=== PATIENT | female | born 1930 | race Caucasian/White ===

== ENCOUNTER 2017-01-21 17:01 | Emergency (ER) | payer MEDICARE, OTHER ==
[~2017-01-21] VITALS: Ht 172.7 cm; Wt 99.8 kg
[~2017-01-21 17:01] MED LIST: ACET325T38 PO; AMAN100T PO; ATOR10TA PO; CALC600T12 PO; CARB1TAB6 PO; CODE118S2 PO; DOCU-143 PO; FLUT16SP22 NS; FURO-124 PO; GEMF600T PO; GUAI100L13 PO; GUAI600T43 PO; HYDR-757 PO; HYPR15DR11 OU; MENT1LOZ4 MM; METO-270 PO; MG T1TAB2 PO; OMG1KC PO; PANT40TA2 PO; POLY17PO6 PO; POTA10TA6 PO; PSYL660P17 PO; VITA400C60 PO
--- NOTE | 2017-01-21 17:23 | ED Trauma-Multisystem ---
General Stated Complaint: FALL Source of Information: Patient, Caregiver Exam Limitations: No Limitations (KRISHNA BOSWELL MD) History of Present Illness Time Seen by Provider: 17:20 Initial Comments The patient is an 86-year-old white female residential resident. She was accompanied by residential personnel. She has rather marked dementia and has no memory of events. She was apparently standing in the doorway of the residential office and fell backward striking her head on the floor. She has no complaints of pain. There was no loss of consciousness. The residential personnel were able to get her up and to ambulate. Occurred: Just Prior to Arrival Pain/Injury Location: Head Method of Injury: Fall (KRISHNA BOSWELL MD) Allergies and Home Medications Allergies Coded Allergies: Penicillins (Verified Allergy, Unknown, 01/30/16) iodine (Verified Allergy, Unknown, 01/30/16) Home Medications Acetaminophen 325 Mg Tablet, 650 MG PO Q4H PRN for PAIN/ELEVATED TEMP, (Reported ) Al Hydrox/mg Trisilicate 1 Tab.chew Tab.chew, 2 TAB.CHEW PO QID PRN for STOMACH UPSET, (Reported) Amantadine HCl 100 Mg Tablet, 100 MG PO BID, (Reported) Atorvastatin Calcium 10 Mg Tablet, 10 MG PO DAILY, (Reported) Calcium Carbonate 600 Mg Tablet, 600 MG PO BID, (Reported) Carbidopa/Levodopa 1 Each Tablet, 1 TAB PO BID, (Reported) Docusate Sodium 100 Mg Capsule, 100 MG PO BID, (Reported) Fluticasone Propionate 16 Gm [place].susp, 1 SPRAY NS 1700, (Reported) Furosemide 40 Mg Tablet, 40 MG PO DAILY, (Reported) Gemfibrozil 600 Mg Tablet, 600 MG PO BID, (Reported) Guaifenesin 100 Mg/5 Ml Liquid, 10 ML PO Q4H PRN for COUGH, (Reported) Guaifenesin 600 Mg Tab.er.12h, 600 MG PO TID PRN for COUGH/CONGESTION, (Reported ) Hydrocodone/Acetaminophen 1 Each Tablet, 1 TAB PO Q4H PRN for PAIN, (Reported) Hypromellose 15 Ml Drops, 1 DROP OU Q4H PRN for DRY EYES, (Reported) Menthol/Herbal Drugs 1 Each Lozenge, 1 ALETA MM EVERY 2 HOURS PRN for COUGH, ( Reported) MAY HAVE ONE DROP EVERY 2 HOURS, NOT TO EXCEED 6 DROPS IN 24 HOURS Metoprolol Succinate 25 Mg Tab.er.24h, 25 MG PO DAILY, #30 Ref 2 Prescribed by: ADAN UMANA on 02/02/16 [address] [place] 3 Polyunsat Fatty Acids 1,000 Mg Cap, 1,000 MG PO DAILY, (Reported) Pantoprazole Sodium 40 Mg Tablet.dr, 40 MG PO BID, (Reported) Polyethylene Glycol 3350 17 Gm Powd.pack, 17 GM PO DAILY, (Reported) Potassium Chloride 10 Meq Tablet.er, 10 MEQ PO BID, (Reported) Promethazine HCl/Codeine 118 Ml Syrup, 10 ML PO Q4H PRN for COUGH, (Reported) Psyllium Husk 660 Gm Powder, 3 TSP PO DAILY, (Reported) Psyllium Husk 660 Gm Powder, 2 TSP PO BID PRN for CONSTIPATION, (Reported) Vitamin E Acetate 400 Unit Capsule, 400 UNIT PO DAILY, (Reported) Constitutional: other (patient is very pleasant but very confused. She has no complaints of pain and does not know where she is) (KRISHNA BOSWELL MD) Past Qursouc-Hxdcyu-Ryhjsz Hx Patient Social History Recent Foreign Travel: No Contact w/Someone Who Travel: No (KRISHNA BOSWELL MD) Immunizations Up To Date Tetanus Booster (TDap): Unknown PED Vaccines UTD: No (KRISHNA BOSWELL MD) Surgeries HX Surgeries: Yes (KRISHNA BOSWELL MD) Respiratory Hx Respiratory Disorders: No (KRISHNA BOSWELL MD) Cardiovascular Hx Cardiac Disorders: Yes (admitted with complete HB 01/30/16) (KRISHNA BOSWELL MD) Neurological Hx Neurological Disorders: Yes (KRISHNA BOSWELL MD) Reproductive System Hx Reproductive Disorders: No (KRISHNA BOSWELL MD) Genitourinary Hx Genitourinary Disorders: Yes Genitourinary Disorders: UTI-Chronic (KRISHNA BOSWELL MD) Gastrointestinal Hx Gastrointestinal Disorders: Yes Gastrointestinal Disorders: Gastroesophageal Reflux, Chronic Constipation, Polyps (KRISHNA BOSWELL MD) Musculoskeletal Hx Musculoskeletal Disorders: Yes Musculoskeletal Disorders: Arthritis (KRISHNA BOSWELL MD) Endocrine Hx Endocrine Disorders: No (KRISHNA BOSWELL MD) HEENT HX ENT Disorders: No (KRISHNA BOSWELL MD) Cancer Hx Cancer: No (KRISHNA BOSWELL MD) Psychosocial Hx Psychiatric Problems: No (KRISHNA BOSWELL MD) Integumentary HX Skin/Integumentary Disorder: No (KRISHNA BOSWELL MD) Blood Transfusions Hx Blood Disorders: No (KRISHNA BOSWELL MD) Family Medical History Significant Family History: Hypertension Family Medial History: Unknown family medical history (KRISHNA BOSWELL MD) Family Medial History: Unknown family medical history (TYREEJESIKA Krsihna DAMICO) Physical Exam Vital Signs Vital Sign - Last 12Hours 01/21/17 17:22 Temp 97.8 Pulse 71 Resp 18 B/P (MAP) 187/104 Pulse Ox 96 O2 Delivery Room Air (TYREEJESIKA ) General Appearance: No Apparent Distress, WD/WN Head: Swelling, Tenderness Eyes: Bilateral Eye Normal Inspection Cardiovascular: Regular Rate, Rhythm, No Edema, No Gallop, No JVD, No Murmur, Normal Peripheral Pulses Respiratory: Chest Non Tender, Lungs Clear, Normal Breath Sounds, No Accessory Muscle Use, No Respiratory Distress Extremity: Normal Capillary Refill, Normal Inspection, Normal Range of Motion, Non Tender, No Calf Tenderness, No Pedal Edema (KRISHNA BOSWELL MD) Progress/Results/Core Measures Results/Orders Lab Results Laboratory Tests Test 01/21/17 19:10 01/21/17 19:25 Range/Units White Blood Count 7.6 4.3-11.0 10^3/uL Red Blood Count 4.45 4.35-5.85 10^6/uL Hemoglobin 13.9 11.5-16.0 G/DL Hematocrit 43 35-52 % Mean Corpuscular Volume 97 80-99 FL Mean Corpuscular Hemoglobin 31 25-34 PG Mean Corpuscular Hemoglobin Concent 32 32-36 G/DL Red Cell Distribution Width 13.9 10.0-14.5 % Platelet Count 191 130-400 10^3/uL Mean Platelet Volume 9.8 7.4-10.4 FL Neutrophils (%) (Auto) 76 H 42-75 % Lymphocytes (%) (Auto) 11 L 12-44 % Monocytes (%) (Auto) 11 0-12 % Eosinophils (%) (Auto) 1 0-10 % Basophils (%) (Auto) 0 0-10 % Neutrophils # (Auto) 5.8 1.8-7.8 X 10^3 Lymphocytes # (Auto) 0.9 L 1.0-4.0 X 10^3 Monocytes # (Auto) 0.9 0.0-1.0 X 10^3 Eosinophils # (Auto) 0.1 0.0-0.3 10^3/uL Basophils # (Auto) 0.0 0.0-0.1 10^3/uL Prothrombin Time 13.4 12.2-14.7 SEC INR Comment 1.1 0.8-1.4 Activated Partial Thromboplast Time 25 24-35 SEC Sodium Level 143 135-145 MMOL/L Potassium Level 3.2 L 3.6-5.0 MMOL/L Chloride Level 107 98-107 MMOL/L Carbon Dioxide Level 23 21-32 MMOL/L Anion Gap 13 5-14 MMOL/L Blood Urea Nitrogen 22 H 7-18 MG/DL Creatinine 1.26 0.60-1.30 MG/DL Estimat Glomerular Filtration Rate 40 BUN/Creatinine Ratio 17 Glucose Level 104 70-105 MG/DL Calcium Level 9.9 8.5-10.1 MG/DL Magnesium Level 2.1 1.8-2.4 MG/DL Total Bilirubin 0.8 0.1-1.0 MG/DL Aspartate Amino Transf (AST/SGOT) 13 5-34 U/L Alanine Aminotransferase (ALT/SGPT) 10 0-55 U/L Alkaline Phosphatase 128 40-136 U/L Total Protein 7.2 6.4-8.2 G/DL Albumin 4.3 3.2-4.5 G/DL Urine Color YELLOW Urine Clarity CLEAR Urine pH 5 5-9 Urine Specific [place] 1.015 L 1.016-1.022 Urine Protein NEGATIVE NEGATIVE Urine Glucose (UA) NEGATIVE NEGATIVE Urine Ketones NEGATIVE NEGATIVE Urine Nitrite NEGATIVE NEGATIVE Urine Bilirubin NEGATIVE NEGATIVE Urine Urobilinogen NORMAL NORMAL MG/DL Urine Leukocyte Esterase 2+ H NEGATIVE Urine RBC (Auto) NEGATIVE NEGATIVE Urine RBC NONE /HPF Urine WBC 10-25 H /HPF Urine Squamous Epithelial Cells 5-10 /HPF Urine Crystals NONE /LPF Urine Bacteria LARGE H /HPF Urine Casts NONE /LPF Urine Mucus NEGATIVE /LPF Urine Culture Indicated YES (TYREEJESIKA K DO) My Orders Orders - TYREEJESIKA K DO Accucheck Stat ONCE (01/21/17 18:46) Saline Lock/Iv-Start (01/21/17 18:46) Cbc With Automated Diff (01/21/17 18:46) Comprehensive Metabolic Panel (01/21/17 18:46) Magnesium (01/21/17 18:46) Protime With Inr (01/21/17 18:46) Partial Thromboplastin Time (01/21/17 18:46) Ua Culture If Indicated (01/21/17 18:46) Urine Culture (01/21/17 19:25) (JESIKA CLEMENTS DO) Vital Signs/I&O Vital Sign - Last 12Hours 01/21/17 17:22 Temp 97.8 Pulse 71 Resp 18 B/P (MAP) 187/104 Pulse Ox 96 O2 Delivery Room Air (JESIKA CLEMENTS DO) Progress Note : Progress Note 1814--ASSUMED CARE FROM DR. BOSWELL, CT REPORT PENDING CERVICAL COLLAR REMOVED BY ME AT [address] REPORT FROM RADIOLOGIST DISCUSSED RESULTS WITH FAMILY. THEY REPORT THAT PT IS NOT ACTING HERSELF AND BP HAS BEEN HIGH SINCE SHE FELL, THEY DO NOT FEEL COMFORTABLE TAKING PT BACK TO GROUP HOME UNTIL OTHER TESTS ARE DONE. FAMILY LATER STATE THAT PT GETS VERY CONFUSED LIKE THIS WHEN SHE HAS A UTI PT IS VERY PLEASANT AND SMILING AND ANSWERS SIMPLE QUESTIONS APPROPRIATELY AND FOLLOWS SIMPLE COMMANDS, BUT DOES APPEAR TO HAVE SOME MEMORY IMPAIRMENT. (JESIKA CLEMENTS DO) Diagnostic Imaging Comments CT HEAD AND CERVICAL SPINE--NO ACUTE PROCESS, CHRONIC DEGENERATIVE CHANGES--PER RADIOLOGIST REPORT AT 1835 Reviewed: Reviewed by Me (JESIKA CLEMENTS DO) Departure Impression Impression: Primary Impression: Status post fall Additional Impressions: Head contusion CERVICAL SPINE STRAIN UTI (urinary tract infection) Altered mental status Disposition: 03 XFER SNF Condition: Stable Departure-Patient Inst. Referrals: ANGELINA FULTON MD (PCP) Primary Care Physician Patient Instructions: Cervical Muscle Strain (DC), Minor Head Injury (DC), Preventing Falls in the Older Adult, Urinary Tract Infection, Adult (DC), Concussion, Adult (DC) Add. Discharge Instructions: ICE TO SORE AREAS AT 20 MINUTE INTERVALS TYLENOL NEEDED FOR PAIN FOLLOW UP WITH DR. FULTON NEEDED RETURN TO ER IF SYMPTOMS WORSEN Scripts Sulfamethoxazole/Trimethoprim (Bactrim Ds Tablet) 1 Each Tablet 1 EACH PO BID, #20 TAB Prov: JESIKA CLEMENTS DO 01/21/17 KRISHNA BOSWELL MD January 21, 2017 17:23 JESIKA CLEMENTS DO January 21, 2017 18:39
--- NOTE | 2017-01-21 18:31 | Diagnostic Imaging Report ---
PROCEDURE: CT head and CT cervical spine without contrast. TECHNIQUE: Multiple contiguous axial images were obtained through the brain and cervical spine without the use of intravenous contrast. Sagittal and coronal reformations through the cervical spine were then performed. INDICATION: Standing with fall backwards. Nonresponding for approximately 1 minute after fall. Neck and head pain. CORRELATION STUDY: CT cervical spine of 08/02/2003. FINDINGS: CT HEAD: Generalized atrophic changes with prominence of the ventricles and sulci. Scattered areas of decreased attenuation, likely owing to chronic small vessel ischemic disease. Definitive geographic area to suggest edema is not suggested. No intracranial hemorrhage. No midline shift or mass effect. No hyperdense MCA sign. Bony calvarium is intact. Paranasal sinuses and mastoid air cells are relatively clear. CT CERVICAL SPINE: There is rather markedly abnormal appearance about the cervical spine. However, large portion appears to be likely relatively stable from prior imaging. There is significant reversal of the cervical lordosis centered at the C6 level. There is anterolisthesis, mild in severity, at C4 on C5 and C5 on C6 of approximately 4 mm. There is rather significant loss of height, most pronounced at C6 also at C7, C5 levels. There has been fusion across the disc spaces at C7-T1 level compared to prior study. Marked disc space narrowing at C5-C6 and C6-C7 levels which are markedly blurred. Diffuse sclerosis is noted of the C6 vertebral body. Posterior cerclage wires at C2, C3, and C4 levels. There does appear to be bony fusion across these levels. Marked narrowing at the C5-C6 level facets. Odontoid is intact. Lateral masses of C1-C2 are aligned. There is also at least partial bony fusion across the C3-C4 disc space, particularly posteriorly. Definitive high-degree spinal canal narrowing does not appear to be present. There is abnormal posterior splaying at C6-C7 facets, may be slightly progressed from prior study. IMPRESSION: CT HEAD: 1. Negative for acute traumatic intracranial abnormality. 2. Generalized atrophic changes with changes of likely chronic small vessel ischemic disease. CT CERVICAL SPINE: 1. Markedly abnormal appearance about the cervical spine. Features appear likely chronic, may be progressed from prior study. Definitive acute bony abnormality however does not appear to be present. Traumatic subluxation does not appear to be present. Dictated by: Dictated on workstation # [id number]
[2017-01-21 19:22] LABS: BASOPHILS % (AUTO) 0 % (0-10); EOSINOPHILS # (AUTO) 0.1 10^3/uL (0.0-0.3); EOSINOPHILS % (AUTO) 1 % (0-10); LYMPHOCYTES # (AUTO) 0.9 X 10^3 (1.0-4.0); LYMPHOCYTES % (AUTO) 11 % (12-44); MEAN CORPUSCULAR HEMOGLOBIN 31 PG (25-34); MEAN CORPUSCULAR HGB CONC 32 G/DL (32-36); MEAN CORPUSCULAR VOLUME 97 FL (80-99); MEAN PLATELET VOLUME 9.8 FL (7.4-10.4); MONOCYTES # (AUTO) 0.9 X 10^3 (0.0-1.0); MONOCYTES % (AUTO) 11 % (0-12); NEUTROPHILS # (AUTO) 5.8 X 10^3 (1.8-7.8); NEUTROPHILS % (AUTO) 76 % (42-75); PLATELET COUNT 191 10^3/uL (130-400); RED BLOOD COUNT 4.45 10^6/uL (4.35-5.85); RED CELL DISTRIBUTION WIDTH 13.9 % (10.0-14.5); WHITE BLOOD COUNT 7.6 10^3/uL (4.3-11.0)
[2017-01-21 19:32] LABS: BILIRUBIN,URINE NEGATIVE (NEGATIVE); KETONES,URINE NEGATIVE (NEGATIVE); LEUKOCYTE ESTERASE ,URINE 2+ (NEGATIVE); NITRITE,URINE NEGATIVE (NEGATIVE); PH,URINE 5 (5-9); PROTEIN,URINE NEGATIVE (NEGATIVE); UROBILINOGEN,URINE NORMAL (NORMAL)
[2017-01-21 19:36] LABS: INR 1.1 (0.8-1.4); PROTHROMBIN TIME PATIENT 13.4 SEC (12.2-14.7)
[2017-01-21 19:39] LABS: ALBUMIN 4.3 G/DL (3.2-4.5); BILIRUBIN,TOTAL 0.8 MG/DL (0.1-1.0); CALCIUM 9.9 MG/DL (8.5-10.1); CREATININE SERUM 1.26 MG/DL (0.60-1.30); MAGNESIUM 2.1 MG/DL (1.8-2.4); POTASSIUM 3.2 MMOL/L (3.6-5.0); TOTAL PROTEIN 7.2 G/DL (6.4-8.2)
[2017-01-21] MEDS ORDERED: SULF1TAB35 PO (19:57)
[2017-01-21 20:31] VITALS: BP 169/89
== END 2017-01-21 20:31 ==
LOC: EDUNIT# 17:01 → ER 17:03
DX: S00.93XA Contusion of unspecified part of head, initial encounter (principal); S16.1XXA Strain of muscle, fascia and tendon at neck level, initial encounter; N39.0 Urinary tract infection, site not specified; F03.90 Unspecified dementia, unspecified severity, without behavioral disturbance, psychotic disturbance, mood disturbance, and anxiety; W19.XXXA Unspecified fall, initial encounter; Y99.8 Other external cause status; Y92.129 Unspecified place in nursing home as the place of occurrence of the external cause
CPT/HCPCS: 36415; 70450; 72125; 80053; 81000; 83735; 85025; 85610; 85730; 87077; 87088; 87186

== ENCOUNTER → 2017-02-16 | Outpatient (CLI) | payer MEDICARE, OTHER ==
[~2017-02-16] MED LIST changes: +SULF1TAB35 PO
--- NOTE | 2017-02-16 14:51 | Diagnostic Imaging Report ---
PROCEDURE: CT head without contrast. TECHNIQUE: Multiple contiguous axial images were obtained through the brain without the use of intravenous contrast. INDICATION: Headache and confusion. COMPARISON: 01/21/2017. DISCUSSION: No adverse interval change. Diffuse brain volume loss is stable, likely age related. White matter hypoattenuation is nonspecific though not greater than expected for age related chronic small vessel ischemic disease, stable. No acute intracranial hemorrhage, mass, midline shift, hydrocephalus. The visualized orbits, paranasal sinuses, mastoid air cells are unremarkable. Mild appearance of the calvarium is likely related to underlying osteoporosis, stable. IMPRESSION: 1. Stable head CT. Dictated by: Dictated on workstation # [id number]
== END ==
LOC: RAD 14:20
PROVIDERS: ATTEND Family Medicine
DX: R41.0 Disorientation, unspecified (principal); Z91.81 History of falling
CPT/HCPCS: 70450

== ENCOUNTER → 2017-04-01 | Outpatient (CLI) | payer MEDICARE, OTHER ==
[2017-04-01 12:45] LABS: CREATININE SERUM 1.15 MG/DL (0.60-1.30); POTASSIUM 3.7 MMOL/L (3.6-5.0)
== END ==
LOC: LAB 11:56
PROVIDERS: ATTEND Physician Assistant
DX: R07.89 Other chest pain (principal); I44.2 Atrioventricular block, complete; I10 Essential (primary) hypertension; E78.2 Mixed hyperlipidemia
CPT/HCPCS: 36415; 80048

== ENCOUNTER → 2017-04-28 | Outpatient (CLI) | payer MEDICARE, OTHER | LOC: CARD 12:57 | PROVIDERS: ATTEND Physician Assistant | DX: R07.89 Other chest pain (principal); I44.2 Atrioventricular block, complete; I10 Essential (primary) hypertension; E78.2 Mixed hyperlipidemia | CPT/HCPCS: 93306 ==

== ENCOUNTER → 2017-05-11 | Outpatient (CLI) | payer MEDICARE, OTHER ==
--- NOTE | 2017-05-11 16:12 | Diagnostic Imaging Report ---
PROCEDURE: CT abdomen and pelvis without contrast. TECHNIQUE: Multiple contiguous axial images were obtained through the abdomen and pelvis without the use of intravenous contrast. INDICATION: History of nephrolithiasis and urinary tract infections. COMPARISON: I have no previous. FINDINGS: There is a probable diverticulum right paramedian at the bladder base with multiple intravesical calcifications, the largest of which measured 6 mm within the dependent aspect of the presumed diverticulum. There is no obvious thickening of the urinary bladder wall. There are multiple pelvic phleboliths present. No appreciable opaque ureteral stone. There is some chronic cortical atrophy associated with the left kidney with multiple left-sided renal calcifications measuring 3 mm long maximal dimension. The right kidney was without stone. There is some exophytic nodularity bilaterally appearing low in density believed to be cystic. There is no hydronephrosis. The gallbladder is surgically absent. There is fatty replacement of the pancreas. Some mild intrahepatic biliary dilatation of uncertain etiology, correlate with relevant liver enzymes. The spleen is negative. The adrenals are negative. 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 The remaining abdominal aorta is tortuous and calcified but otherwise nonfocal. No perinephric edema. No focal inflammatory process. Degenerative changes to the osseous structures present. No acute bony abnormality. 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 The diverticulum containing small stone fragments. The largest above the urinary bladder wall was non-thickened however there is a large amount of air within the urinary bladder lumen which may reflect recent instrumentation, correlate clinically. No hydronephrosis. Left-sided renal calcifications and chronic areas of focal cortical atrophy with presumed bilateral renal cysts. Etiology indeterminate biliary dilatation. This may be senescent and post cholecystectomy although warrants correlation with liver function studies to exclude acute obstruction. Fatty pancreas is nonacute. Dictated by: Dictated on workstation # [id number]
== END ==
LOC: RAD 12:48
PROVIDERS: ATTEND Urology
DX: N32.9 Bladder disorder, unspecified (principal); N20.0 Calculus of kidney; K86.89 Other specified diseases of pancreas; Z90.49 Acquired absence of other specified parts of digestive tract
CPT/HCPCS: 74176

== ENCOUNTER 2018-11-08 13:10 | Emergency (ER) | payer MEDICARE, OTHER, MEDICAID ==
[~2018-11-08] VITALS: Ht 170.2 cm; Wt 79.4 kg
[~2018-11-08 13:10] MED LIST changes: -CODE118S2 PO; +CODE118S4 PO; +HYDR-4226 PO; -HYDR-757 PO; -METO-270 PO; +METO-387 PO
[2018-11-08 15:16] LABS: BILIRUBIN,URINE NEGATIVE (NEGATIVE); CLARITY,URINE VERY CLOUDY; COLOR,URINE AMBER; GLUCOSE, URINE (UA) NEGATIVE (NEGATIVE); KETONES,URINE NEGATIVE (NEGATIVE); LEUKOCYTE ESTERASE ,URINE 3+ (NEGATIVE); NITRITE,URINE NEGATIVE (NEGATIVE); PH,URINE 6 (5-9); PROTEIN,URINE 3+ (NEGATIVE); UROBILINOGEN,URINE NORMAL (NORMAL)
[2018-11-08 15:17] LABS: BASOPHILS % (AUTO) 0 % (0-10); EOSINOPHILS # (AUTO) 0.1 10^3/uL (0.0-0.3); EOSINOPHILS % (AUTO) 1 % (0-10); HEMATOCRIT 47 % (35-52); HEMOGLOBIN 15.7 G/DL (11.5-16.0); LYMPHOCYTES # (AUTO) 1.1 X 10^3 (1.0-4.0); LYMPHOCYTES % (AUTO) 12 % (12-44); MEAN CORPUSCULAR HEMOGLOBIN 32 PG (25-34); MEAN CORPUSCULAR HGB CONC 33 G/DL (32-36); MEAN CORPUSCULAR VOLUME 97 FL (80-99); MEAN PLATELET VOLUME 9.3 FL (7.4-10.4); MONOCYTES # (AUTO) 1.2 X 10^3 (0.0-1.0); MONOCYTES % (AUTO) 13 % (0-12); NEUTROPHILS # (AUTO) 6.6 X 10^3 (1.8-7.8); NEUTROPHILS % (AUTO) 73 % (42-75); PLATELET COUNT 334 10^3/uL (130-400); RED CELL DISTRIBUTION WIDTH 13.5 % (10.0-14.5); WHITE BLOOD COUNT 9.1 10^3/uL (4.3-11.0)
[2018-11-08 15:26] LABS: INR 1.1 (0.8-1.4); PROTHROMBIN TIME PATIENT 14.6 SEC (12.2-14.7)
[2018-11-08 15:32] LABS: ALBUMIN 4.3 GM/DL (3.2-4.5); BILIRUBIN,TOTAL 0.9 MG/DL (0.1-1.0); CALCIUM 11.4 MG/DL (8.5-10.1); CREATININE SERUM 1.2 MG/DL (0.60-1.30); POTASSIUM 3.9 MMOL/L (3.6-5.0); TOTAL PROTEIN 7.4 GM/DL (6.4-8.2)
[2018-11-08 15:34] LABS: BACTERIA,URINE MODERATE /HPF; SQUAMOUS EPITHELIAL CELL,UR RARE /HPF; WBC,URINE 50-100 /HPF
[2018-11-08 15:35] LABS: YEAST,URINE FEW /HPF
--- NOTE | 2018-11-08 15:52 | Diagnostic Imaging Report ---
INDICATION: Abdominal pain. TIME OF EXAM: 03:40 p.m. COMPARISON: Correlation is made with prior study from 02/02/2016. FINDINGS: The heart size is stable. Cardiac pacemaker remains in place. The lungs are clear. No infiltrate or failure is seen. No effusion or pneumothorax is identified. There are postop changes to the right shoulder. IMPRESSION: No acute cardiopulmonary process is detected. Dictated by: Dictated on workstation # [id number]
[2018-11-08] MEDS ORDERED: NS IV 1000 ML 1,000 ML IV SCH (16:00)
[2018-11-08] MEDS ORDERED: cefTRIAXone FOR IV USE 1,000 MG in WATER (STERILE) FOR INJECTION 10 ML IV ONE (16:00)
--- NOTE | 2018-11-08 16:05 | ED GU-Female ---
General Chief Complaint: Respiratory Problems Stated Complaint: VAGINAL AND ABD PAIN Nursing Triage Note: PT ARRIVED POV WITH SON FROM [facility] WITH C/O VAGINAL PAIN. PT SEEN DOCTOR THIS WEEK AND THEY WERE GOING TO SET HER UP WITH A COBOL APPLICATION DEVELOPER SOON. PT SON SAYS THE PAIN IS WORSE AND SHE SEEMS CONFUSED. Nursing Sepsis Screen: No Definite Risk Source: patient, family (son) Exam Limitations: no limitations History of Present Illness Date Seen by Provider: Nov 08, 2018 Time Seen by Provider: 13:47 Allergies and Home Medications Allergies Coded Allergies: Penicillins (Verified Allergy, Unknown, 01/30/16) iodine (Verified Allergy, Unknown, 01/30/16) Home Medications Acetaminophen 325 Mg Tablet, 650 MG PO Q4H PRN for PAIN/ELEVATED TEMP, (Reported ) Al Hydrox/mg Trisilicate 1 Tab.chew Tab.chew, 2 TAB.CHEW PO QID PRN for STOMACH UPSET, (Reported) Amantadine HCl 100 Mg Tablet, 100 MG PO BID, (Reported) Atorvastatin Calcium 10 Mg Tablet, 10 MG PO DAILY, (Reported) Calcium Carbonate 600 Mg Tablet, 600 MG PO BID, (Reported) Carbidopa/Levodopa 1 Each Tablet, 1 TAB PO BID, (Reported) Docusate Sodium 100 Mg Capsule, 100 MG PO BID, (Reported) Fluticasone Propionate 16 Gm [place].susp, 1 SPRAY NS 1700, (Reported) Furosemide 40 Mg Tablet, 40 MG PO DAILY, (Reported) Gemfibrozil 600 Mg Tablet, 600 MG PO BID, (Reported) Guaifenesin 100 Mg/5 Ml Liquid, 10 ML PO Q4H PRN for COUGH, (Reported) Guaifenesin 600 Mg Tab.er.12h, 600 MG PO TID PRN for COUGH/CONGESTION, (Reported ) Hydrocodone/Acetaminophen 1 Each Tablet, 1 TAB PO Q4H PRN for PAIN, (Reported) Hypromellose 15 Ml Drops, 1 DROP OU Q4H PRN for DRY EYES, (Reported) Menthol/Herbal Drugs 1 Each Lozenge, 1 ALETA MM EVERY 2 HOURS PRN for COUGH, ( Reported) MAY HAVE ONE DROP EVERY 2 HOURS, NOT TO EXCEED 6 DROPS IN 24 HOURS Metoprolol Succinate 25 Mg Tab.er.24h, 25 MG PO DAILY Prescribed by: ADAN UMAAN on 02/02/16 0908 [place] 3 Polyunsat Fatty Acids 1,000 Mg Cap, 1,000 MG PO DAILY, (Reported) Pantoprazole Sodium 40 Mg Tablet.dr, 40 MG PO BID, (Reported) Polyethylene Glycol 3350 17 Gm Powd.pack, 17 GM PO DAILY, (Reported) Potassium Chloride 10 Meq Tablet.er, 10 MEQ PO BID, (Reported) Promethazine HCl/Codeine 118 Ml Syrup, 10 ML PO Q4H PRN for COUGH, (Reported) Psyllium Husk 660 Gm Powder, 3 TSP PO DAILY, (Reported) Psyllium Husk 660 Gm Powder, 2 TSP PO BID PRN for CONSTIPATION, (Reported) Sulfamethoxazole/Trimethoprim 1 Each Tablet, 1 EACH PO BID Prescribed by: JESIKA CLEMENTS on 01/21/171956 Vitamin E Acetate 400 Unit Capsule, 400 UNIT PO DAILY, (Reported) Past Gjlmpzi-Wdewnd-Nbzwqj Hx Patient Social History Alcohol Use: Denies Use Recreational Drug Use: No Smoking Status: Never a Smoker Recent Foreign Travel: No Contact w/Someone Who Travel: No Recent Infectious Disease Expo: No Recent Hopitalizations: No Immunizations Up To Date Tetanus Booster (TDap): Unknown PED Vaccines UTD: No Past Medical History Surgeries: Yes Respiratory: No Cardiac: Yes (admitted with complete HB 01/30/16) Neurological: Yes Reproductive Disorders: No UTI-Chronic Gastrointestinal: Yes Gastroesophageal Reflux, Chronic Constipation, Polyps Musculoskeletal: Yes Arthritis Endocrine: No Cancer: No Psychosocial: No Integumentary: No Blood Disorders: No Family Medical History Unknown family medical history Hypertension Physical Exam Vital Signs Vital Signs - First Documented 11/08/18 13:29 Pulse 83 Resp 20 B/P (MAP) 143/88 (106) Pulse Ox 93 O2 Delivery Room Air Capillary Refill : Less Than 3 Seconds Height, Weight, BMI Height: 5'7.00" Weight: 175lbs. 0.0oz. [id number]; 30.6 BMI Method:Stated Focused Exam Lactate Level 11/08/18 15:00: Lactic Acid Level 2.30*H Lactic Acid Level Laboratory Tests Test 11/08/18 15:00 Lactic Acid Level 2.30 MMOL/L (0.50-2.00) *H Progress/Results/Core Measures Suspected Sepsis Recent Fever Within 48 Hours: No Infection Criteria Present: Suspected New Infection New/Unexplained Altered Menta: Yes Sepsis Screen: No Definite Risk SIRS Temperature: Pulse: 83 Respiratory Rate: 20 Laboratory Tests 11/08/18 15:00: White Blood Count 9.1 Blood Pressure 143 /88 Mean: 106 11/08/18 15:00: Lactic Acid Level 2.30*H Laboratory Tests 11/08/18 15:00: Creatinine 1.20, INR Comment 1.1, Platelet Count 334, Total Bilirubin 0.9 Results/Orders Lab Results Laboratory Tests Test 11/08/18 15:00 Range/Units White Blood Count 9.1 4.3-11.0 10^3/uL Red Blood Count 4.87 4.35-5.85 10^6/uL Hemoglobin 15.7 11.5-16.0 G/DL Hematocrit 47 35-52 % Mean Corpuscular Volume 97 80-99 FL Mean Corpuscular Hemoglobin 32 25-34 PG Mean Corpuscular Hemoglobin Concent 33 32-36 G/DL Red Cell Distribution Width 13.5 10.0-14.5 % Platelet Count 334 130-400 10^3/uL Mean Platelet Volume 9.3 7.4-10.4 FL Neutrophils (%) (Auto) 73 42-75 % Lymphocytes (%) (Auto) 12 12-44 % Monocytes (%) (Auto) 13 H 0-12 % Eosinophils (%) (Auto) 1 0-10 % Basophils (%) (Auto) 0 0-10 % Neutrophils # (Auto) 6.6 1.8-7.8 X 10^3 Lymphocytes # (Auto) 1.1 1.0-4.0 X 10^3 Monocytes # (Auto) 1.2 H 0.0-1.0 X 10^3 Eosinophils # (Auto) 0.1 0.0-0.3 10^3/uL Basophils # (Auto) 0.0 0.0-0.1 10^3/uL Prothrombin Time 14.6 12.2-14.7 SEC INR Comment 1.1 0.8-1.4 Activated Partial Thromboplast Time 28 24-35 SEC Urine Color MADIHA H Urine Clarity VERY CLOUDY H Urine pH 6 5-9 Urine Specific [place] 1.015 L 1.016-1.022 Urine Protein 3+ H NEGATIVE Urine Glucose (UA) NEGATIVE NEGATIVE Urine Ketones NEGATIVE NEGATIVE Urine Nitrite NEGATIVE NEGATIVE Urine Bilirubin NEGATIVE NEGATIVE Urine Urobilinogen NORMAL NORMAL MG/DL Urine Leukocyte Esterase 3+ H NEGATIVE Urine RBC (Auto) 2+ H NEGATIVE Urine RBC 2-5 H /HPF Urine WBC 50-100 H /HPF Urine Squamous Epithelial Cells RARE /HPF Urine Crystals NONE /LPF Urine Bacteria MODERATE H /HPF Urine Casts NONE /LPF Urine Mucus NEGATIVE /LPF Urine Yeast FEW H /HPF Urine Culture Indicated CULTURE PENDING Sodium Level 141 135-145 MMOL/L Potassium Level 3.9 3.6-5.0 MMOL/L Chloride Level 108 H 98-107 MMOL/L Carbon Dioxide Level 20 L 21-32 MMOL/L Anion Gap 13 5-14 MMOL/L Blood Urea Nitrogen 38 H 7-18 MG/DL Creatinine 1.20 0.60-1.30 MG/DL Estimat Glomerular Filtration Rate 42 BUN/Creatinine Ratio 32 Glucose Level 145 H 70-105 MG/DL Lactic Acid Level 2.30 *H 0.50-2.00 MMOL/L Calcium Level 11.4 H 8.5-10.1 MG/DL Corrected Calcium 11.2 H 8.5-10.1 MG/DL Total Bilirubin 0.9 0.1-1.0 MG/DL Aspartate Amino Transf (AST/SGOT) 18 5-34 U/L Alanine Aminotransferase (ALT/SGPT) 8 0-55 U/L Alkaline Phosphatase 154 H 40-136 U/L Total Protein 7.4 6.4-8.2 GM/DL Albumin 4.3 3.2-4.5 GM/DL My Orders Orders - JOHN REN Ua Culture If Indicated (11/08/18 13:47) Cbc With Automated Diff (11/08/18 14:51) Comprehensive Metabolic Panel (11/08/18 14:51) Blood Culture (11/08/18 14:51) Sputum Culture (11/08/18 14:51) Urinalysis (11/08/18 14:51) Urine Culture (11/08/18 14:51) Protime With Inr (11/08/18 14:51) Partial Thromboplastin Time (11/08/18 14:51) Chest 1 View, Ap/Pa Only (11/08/18 14:51) Saline Lock/Iv-Start (11/08/18 14:51) Vital Signs Adult Sepsis Patie Q15M (11/08/18 14:51) O2 (11/08/18 14:51) Remove Rings In Anticipation O (11/08/18 14:51) Lactic Acid Analyzer (11/08/18 14:51) Ceftriaxone For Iv Use (Rocephin For I (11/08/18 16:00) Ns Iv 1000 Ml (Sodium Chloride 0.9%) (11/08/18 16:00) Medications Given in ED Current Medications Medications Dose Ordered Sig/Ahsan Route Start Time Stop Time Status Last Admin Dose Admin Ceftriaxone Sodium 1000 mg/ Sterile Water 10 ml @ 200 mls/hr ONCE ONCE IV 11/08/18 16:00 11/08/18 16:02 DC 11/08/18 16:05 200 MLS/HR Vital Signs/I&O 11/08/18 13:29 Pulse 83 Resp 20 B/P (MAP) 143/88 (106) Pulse Ox 93 O2 Delivery Room Air Capillary Refill : Less Than 3 Seconds Blood Pressure Mean: 106 Departure Impression Primary Impression: Urinary retention Additional Impression: Urinary tract infection Disposition: 01 HOME, SELF-CARE Condition: Stable/Unchanged Departure-Patient Inst. Decision time for Depature: 16:06 Referrals: ANGELINA KAPLAN MD (PCP/Family) Primary Care Physician Patient Instructions: Urinary Retention, Urinary Tract Infection, Adult (DC) Add. Discharge Instructions: Leave the Chris in place for 5 days and then remove it on the fifth day. Rocephin IM 1 GM [id number]. Follow-up with Dr. Kaplan's office on Wednesday morning at 9:15 11/11/18. Return back to the emergency room for worsening symptoms or concerns as needed. All discharge instructions reviewed with patient and/or family. Voiced understanding. Scripts Ceftriaxone Sodium (Ceftriaxone) 1 Gm Vial 1 GM IM DAILY for 7 Days, #7 VIAL Prov: JOHN REN 11/08/18 JOHN REN Nov 08, 2018 16:05
[2018-11-08] MEDS ORDERED: CFTR1V IM (16:39)
--- NOTE | 2018-11-08 17:36 | NUR ---
1710- CALLED [facility] TO LET THEM KNOW PT IS READY TO BE PICKED UP.
[2018-11-08 18:56] VITALS: BP 155/69
== END 2018-11-08 18:56 | disposition home or self-care (01) ==
LOC: EDUNIT# 13:10 → ER 13:12
DX: N39.0 Urinary tract infection, site not specified (principal); K21.9 Gastro-esophageal reflux disease without esophagitis; Z86.010 Personal history of colon polyps; Z87.19 Personal history of other diseases of the digestive system; Z82.49 Family history of ischemic heart disease and other diseases of the circulatory system; Z88.0 Allergy status to penicillin; Z91.040 Latex allergy status; Z79.51 Long term (current) use of inhaled steroids; Z87.440 Personal history of urinary (tract) infections
CPT/HCPCS: 36415; 51702; 71045; 80053; 81000; 83605; 85025; 85610; 85730; 87040; 87077; 87088; 96361; 96365

== ENCOUNTER → 2018-11-16 | Outpatient (CLI) | payer MEDICARE, OTHER, MEDICAID ==
[~2018-11-16] MED LIST changes: +CFTR1V IM
--- NOTE | 2018-11-16 13:46 | Diagnostic Imaging Report ---
PROCEDURE: CT abdomen and pelvis without contrast. TECHNIQUE: Multiple contiguous axial images were obtained through the abdomen and pelvis without the use of intravenous contrast. INDICATION: Pain, hematuria. FINDINGS: The previous CT of the abdomen/pelvis exam of 05/09/2017 noted nonobstructive calculi involving both kidneys but failed to show any sign of obstruction of either collecting system. There is also scar formation involving the left kidney. Those findings are again evident on this study and no different. The small suspected cysts involving the kidney seen previously are also again evident and stable. 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 Those findings are again evident and no different. The previous study did reveal a large air-fluid level within the bladder. On this exam there is only a small droplet of gas still present within the bladder. The urinary bladder itself is distended. There is a fecal impaction. There are also numerous surgical clips about the sigmoid portion of the colon. There is no sign of acute diverticulitis or colitis however. There is a surgical clip near the tip of the cecum and I suspect that the appendix is surgically absent. There is gas and fecal material throughout the remainder of the colon. This is nonspecific in appearance. There are also a few fluid-filled segments of small bowel. These are nonspecific but could be related to a mild ileus perhaps secondary to enteritis. The liver, spleen, pancreas, adrenals, aorta and inferior vena cava show no sign of an acute abnormality. As noted on the previous exam the gallbladder is surgically absent and the common bile duct is dilated near its entry to the head of the pancreas. The common bile duct does seem more distended than noted on the prior exam measuring approximately 17 mm as opposed to 11 mm previously. There is no sign of an obstructive calculus or mass and I suspect the dilatation of the common bile duct is a sequela of the patient's prior cholecystectomy. If further imaging is desired, then MRI would be recommended. The liver itself does not seem to be enlarged. The stomach is incompletely distended and consequently difficult to assess. The lung bases are generally clear. 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 IMPRESSION: 1. There are nonobstructive calculi within both kidneys and there is no sign of obstruction of either collecting system by a calculus. 2. 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 The bladder is distended by urine and there is a small droplet of gas within the bladder. 3. There is no acute abnormality of the abdomen and pelvis noted otherwise. 4. The fluid-filled segments of small bowel are nonspecific. These could be secondary to a mild ileus perhaps related to enteritis. Clinical followup is recommended. Dictated by: Dictated on workstation # [id number]
== END ==
LOC: RAD 11:38
PROVIDERS: ATTEND Urology
DX: N20.0 Calculus of kidney (principal); N21.0 Calculus in bladder; N32.89 Other specified disorders of bladder; Z98.890 Other specified postprocedural states; Z90.49 Acquired absence of other specified parts of digestive tract
CPT/HCPCS: 74176

== ENCOUNTER → 2019-01-28 | Outpatient (CLI) | payer MEDICARE, OTHER, MEDICAID ==
[2019-01-28 01:58] LABS: BILIRUBIN,URINE NEGATIVE (NEGATIVE); CLARITY,URINE CLEAR; COLOR,URINE YELLOW; GLUCOSE, URINE (UA) NEGATIVE (NEGATIVE); KETONES,URINE NEGATIVE (NEGATIVE); LEUKOCYTE ESTERASE ,URINE NEGATIVE (NEGATIVE); NITRITE,URINE POSITIVE (NEGATIVE); PH,URINE 5 (5-9); PROTEIN,URINE NEGATIVE (NEGATIVE); UROBILINOGEN,URINE NORMAL (NORMAL)
[2019-01-28 02:16] LABS: BACTERIA,URINE LARGE /HPF; SQUAMOUS EPITHELIAL CELL,UR 0-2 /HPF; WBC,URINE 0-2 /HPF
== END ==
LOC: CVS 01:54
PROVIDERS: ATTEND Urology
DX: R82.998 Other abnormal findings in urine (principal); E11.9 Type 2 diabetes mellitus without complications; G20 Parkinson's disease
CPT/HCPCS: 81000; 87077; 87088; 87184; 87186